=== PATIENT | male | born 1990 | race Caucasian/White ===

== ENCOUNTER 2020-10-06 13:56 | Emergency (ER) | payer OTHER ==
[~2020-10-06] VITALS: Ht 185.4 cm; Wt 115.0 kg
[2020-10-06] MEDS ORDERED: AMOX/K CLAV875 M1 PO ×2 (14:40→15:14)
[2020-10-06 15:10] VITALS: BP 121/64
== END 2020-10-06 15:10 | disposition home or self-care (01) | DRG 605 ==
LOC: ED 13:56
DX: S80.272A Other superficial bite of left knee, initial encounter (principal); K21.9 Gastro-esophageal reflux disease without esophagitis; W54.0XXA Bitten by dog, initial encounter; Y99.0 Civilian activity done for income or pay

== ENCOUNTER 2020-10-09 10:45 | Emergency (ER) | payer OTHER ==
[~2020-10-09] VITALS: Ht 185.4 cm; Wt 115.0 kg
[~2020-10-09 10:45] MED LIST: AMOX/K CLAV875 M1 PO
[2020-10-09 11:25] VITALS: BP 122/70
== END 2020-10-09 11:25 | disposition home or self-care (01) | DRG 951 ==
LOC: ED 10:45
PROC: 3E0234Z Introduction of Serum, Toxoid and Vaccine into Muscle, Percutaneous Approach (ICD-10-PCS; principal; 2020-10-09)
DX: Z23 Encounter for immunization (principal); S81.852D Open bite, left lower leg, subsequent encounter; W54.0XXD Bitten by dog, subsequent encounter

== ENCOUNTER 2023-04-18 20:46 | Emergency (ER) | payer OTHER ==
[~2023-04-18] VITALS: Ht 185.4 cm; Wt 105.0 kg
[2023-04-18 22:02] VITALS: BP 130/60
== END 2023-04-18 22:31 | disposition home or self-care (01) | DRG 914 ==
LOC: ED 20:46
DX: S09.90XA Unspecified injury of head, initial encounter (principal); Y35.891A Legal intervention involving other specified means, law enforcement official injured, initial encounter; Z98.890 Other specified postprocedural states

== ENCOUNTER 2025-01-01 12:39 | Emergency (ER) | payer BC ==
[~2025-01-01] VITALS: Ht 185.4 cm; Wt 95.0 kg
[2025-01-01 12:49] VITALS: BP 125/84
[2025-01-01 13:00] VITALS: BP 123/75
[2025-01-01] MEDS ORDERED: TETRACAINE HCL 0.5 %/4 ML SOL OS ONE (13:05)
[2025-01-01] MEDS ORDERED: FLUORESCEIN SODIUM 1 MG EA OS ONE (13:05)
[2025-01-01] MEDS ORDERED: VIGAMOX OD (13:15)
[2025-01-01 13:23] VITALS: BP 123/75
== END 2025-01-01 13:38 | disposition home or self-care (01) | DRG 125 ==
LOC: ED 12:39
DX: H57.12 Ocular pain, left eye (principal)